=== PATIENT | male | born 1995 | race American Indian/Alaskan Native ===

== ENCOUNTER 2019-05-08 09:47 | Observation (INO) | payer BC ==
[~2019-05-08] VITALS: Wt 104.5 kg
[~2019-05-08 09:47] MED LIST changes: -Norco 7.5-3251 EACH PO
--- NOTE | 2019-05-08 13:16 | NUR ---
PT TO DAY SURGERY AT THIS TIME
--- NOTE | 2019-05-08 15:52 | NUR ---
POST OP S/P LAP APPY. X3 LAP SITES TO ABD ARE CDI WITH SCANT OOZING TO UMBILICAL SITE. MEDICATED WITH 2MG MORPHINE FOR PAIN AND PT WENT DOWN FROM A 04/13 TO A 5. DENIES N/V. OFFERED CLEAR LIQ. IVF INFUSING PER ORDERS. PT ALERT AND ORIENTED. POST OP VSS AND IN PROGRESS. ENC TO COUGH AND DEEP BREATHE. WILL OFFER ORAL PAIN MEDICATION WITH PO INTAKE AND ATTEMPT TO GET OOB BY END OF SHIFT. FAMILY AT BEDSIDE FOR SUPPORT. CALL LIGHT WITHIN REACH.
--- NOTE | 2019-05-08 22:14 | NUR ---
PATIENT RESTING WELL, S/O IN RECLINER PLANNING TO STAY THE NIGHT. C/O MILD CONSTANT ACHE IN HIS LOWER ABDOMEN. DENIES NEED FOR MEDICATIONS. ABLE TO GET OUT OF BED WITH ASSISTANCE DUE TO SCUD'S. REINFORCED USAGE OF CALL LIGHT FOR ASSISTANCE TO THE BR FOR SAFETY.
--- NOTE | 2019-05-09 05:13 | NUR ---
SHIFT SUMMARY. Patient and S/O slept throughtout the night. He woke with a few of the roundings. He has stated that he was having mild discomfort, but not enough to ask for medications. No further drainage from any of the three abdominal surgical sites.
[2019-05-09] MEDS ORDERED: Norco 7.5-3251 EACH PO (08:30)
--- NOTE | 2019-05-09 09:00 | NUR ---
DISCHARGE PT TOLERATING DIET, AMBULATING, PASSING GAS, AND PAIN MANAGED. AMBULATES OUT ON OWN WITH SIGNIFICANT OTHER BY SIDE.
--- NOTE | 2019-05-09 09:35 | NUR ---
05/09/19 0934 Carmen Velásquez VERIFICATIONS: EDIT CHART.
== END 2019-05-09 09:05 | disposition home or self-care (01) ==
LOC: CT 09:47 → SURS 09:48 → CT 11:49 → SURS 11:49
PROVIDERS: ADMIT Surgery
PROC: 0DTJ4ZZ Resection of Appendix, Percutaneous Endoscopic Approach (ICD-10-PCS; principal; 2019-05-08 12:30)
DX: K35.80 Unspecified acute appendicitis (principal)
CPT/HCPCS: 74177; 88305; G0378; J0330; J0694; J1100; J2250; J2270; J2405; J2704; J2710; J3010; J7120; Q9967

== ENCOUNTER → 2019-05-08 | Outpatient (CLI) | payer BC ==
[~2019-05-08] MED LIST: AMOX500 PO; AMOX50SU PO; ARIP10 PO; CITA20 PO; CODACE30 PO; GUAN1; HYDACE5 PO; HYDVAL.2TA TOP; IBUP100S; LACT10SY PO; Norco 7.5-3251 EACH PO; PRED10 PO; PROCODE120 PO; PROM25 PO; RXCODACET PO; TENEX; Ultram50 MG PO; Veetids 500500 MG PO; Zofran4 MG PO
[2019-05-08 09:53] LABS: BASOPHILS ABSOLUTE AUTO 0.06 K/mm3 (0.00-0.23); BASOPHILS PERCENT AUTO 0 % (0-2); EOSINOPHILS ABSOLUTE AUTO 0.01 K/mm3 (0.00-0.68); EOSINOPHILS PERCENT AUTO 0 % (0-6); Hematocrit 46.7 % (37.0-53.0); Hemoglobin 15.6 g/dL (13.5-17.5); IMMATURE GRAN ABSOLUTE AUTO 0.16 K/mm3 (0.00-0.10); IMMATURE GRAN PERCENT AUTO 1 % (0-1); LYMPHOCYTES ABSOLUTE AUTO 1.45 K/mm3 (0.84-5.20); LYMPHOCYTES PERCENT AUTO 6 % (21-46); MONOCYTES PERCENT AUTO 4 % (4-13); Mean Corpuscular HGB 28.8 pg (26.0-34.0); Mean Corpuscular HGB Conc 33.4 g/dL (31.5-36.5); Mean Corpuscular Volume 86 fL (80-100); Mean Platelet Volume 10.3 fL (9.1-12.4); NEUTROPHILS ABSOLUTE AUTO 20.83 K/mm3 (1.96-9.15); NEUTROPHILS PERCENT AUTO 89 % (41-73); Platelet Count 343 K/mm3 (150-400); RDW Standard Deviation 40.4 fL (35.1-46.3); Red Blood Cell Count 5.42 M/mm3 (4.30-5.90); White Blood Cell Count 23.51 K/mm3 (4.00-11.30)
[2019-05-08 10:01] LABS: Alanine Aminotransfer (ALT/SGP 28 U/L (12-78); Albumin, Blood 4.4 g/dL (3.4-5.0); Albumin/Globulin Ratio 1.2 (0.8-1.8); Alk Phos 69 U/L (50-136); Anion Gap 6 mmol/L (6-16); Aspartate Aminotrans (AST/SGOT 16 U/L (12-37); Bilirubin, Total 0.6 mg/dL (0.1-1.0); Blood Urea Nitrogen 11 mg/dL (8-24); Bun/Creatinine Ratio 13.3 (12.0-20.0); CO2, Blood 26 mmol/L (21-32); Calcium, Blood 9.8 mg/dL (8.5-10.1); Chloride, Blood 106 mmol/L (98-108); Creatinine, Blood 0.83 mg/dL (0.60-1.20); Globulin, Blood 3.8 g/dL (2.2-4.0); Glomerular Filtration Rate >60 (60-); Glucose, Blood 122 mg/dL (70-99); Potassium, Blood 3.6 mmol/L (3.5-5.5); Sodium, Blood 138 mmol/L (136-145); Total Protein, Blood 8.2 g/dL (6.4-8.2)
== END | disposition home or self-care (01) ==
LOC: LAB SHORT 09:00 → LAB 09:00
PROVIDERS: Physician Assistant
DX: R10.84 Generalized abdominal pain (principal)
CPT/HCPCS: 80053; 83690; 85025

== ENCOUNTER → 2019-08-04 | Outpatient (CLI) | payer BC ==
[~2019-08-04] MED LIST changes: +Norco 7.5-3251 EACH PO
[2019-08-05 16:43] LABS: U Amphetamine Screen Not Detected; U Barbituate Screen Not Detected; U Benzodiazapine Screen Not Detected; U Buprenorphine Screen Not Detected; U Cannabinoids Screen Not Detected; U Cocaine Screen Not Detected; U Methadone Screen Not Detected; U Methamphetamine Screen Not Detected; U Opiates Screen Not Detected; U Oxycodone Screen Not Detected; U Phencyclidine Screen Not Detected; U Propoxyphene Screen Not Detected
== END | disposition home or self-care (01) ==
LOC: LAB SHORT 09:30 → LAB 09:30
PROVIDERS: Physician Assistant
DX: Z51.81 Encounter for therapeutic drug level monitoring (principal); Z79.891 Long term (current) use of opiate analgesic

== ENCOUNTER → 2020-02-28 | Outpatient (CLI) | payer OTHER | LOC: LAB 18:07 → LAB SHORT 18:07 | DX: Z48.02 Encounter for removal of sutures (principal); L08.9 Local infection of the skin and subcutaneous tissue, unspecified | CPT/HCPCS: 87070; 87205 ==

== ENCOUNTER 2022-03-18 06:46 | Emergency (ER) | payer OTHER ==
[~2022-03-18] VITALS: Ht 185.4 cm; Wt 106.6 kg
[2022-03-18] MEDS ORDERED: Clomiphene Citr50 MG PO (07:20)
== END 2022-03-18 08:15 | disposition home or self-care (01) ==
LOC: ER 06:46
DX: U07.1 COVID-19 (principal)
CPT/HCPCS: 99283

== ENCOUNTER 2022-07-07 08:19 | Inpatient (IN) | payer BC, OTHER ==
[~2022-07-07] VITALS: Ht 182.9 cm; Wt 103.2 kg
[~2022-07-07 08:19] MED LIST changes: +Clomiphene Citr50 MG PO
[2022-07-07 10:08] LABS: Source, Urine Clean Catch
[2022-07-07 10:16] LABS: BASOPHILS ABSOLUTE AUTO 0.04 K/mm3 (0.00-0.23); BASOPHILS PERCENT AUTO 0 % (0-2); EOSINOPHILS PERCENT AUTO 2 % (0-6); Hematocrit 44.4 % (37.0-53.0); Hemoglobin 15.3 g/dL (13.5-17.5); IMMATURE GRAN ABSOLUTE AUTO 0.03 K/mm3 (0.00-0.10); IMMATURE GRAN PERCENT AUTO 0 % (0-1); LYMPHOCYTES ABSOLUTE AUTO 3.69 K/mm3 (0.84-5.20); LYMPHOCYTES PERCENT AUTO 28 % (21-46); MONOCYTES ABSOLUTE AUTO 0.83 K/mm3 (0.16-1.47); MONOCYTES PERCENT AUTO 6 % (4-13); Mean Corpuscular HGB Conc 34.5 g/dL (31.5-36.5); Mean Corpuscular Volume 84 fL (80-100); Mean Platelet Volume 9.8 fL (9.1-12.4); NEUTROPHILS ABSOLUTE AUTO 8.39 K/mm3 (1.96-9.15); NEUTROPHILS PERCENT AUTO 63 % (41-73); Platelet Count 322 K/mm3 (150-400); RDW Coefficient Variation 12.6 % (11.7-14.2); RDW Standard Deviation 38.4 fL (35.1-46.3); Red Blood Cell Count 5.27 M/mm3 (4.30-5.90); White Blood Cell Count 13.28 K/mm3 (4.00-11.30)
[2022-07-07 10:17] LABS: Appearance, Urine Clear (Clear); Bilirubin, Urine Neg (Neg); Blood, Urine 5+ (Neg); Color, Urine Amber (P-Yellow); Glucose Qualitative, Urine Neg (Neg); Ketones, Urine 2+ (Neg); Leukocyte Esterase, Urine Neg (Neg); Nitrite, Urine Neg (Neg); Protein, Urine 3+ (Neg); Specific Gravity, Urine 1.015 (1.003-1.022); Urobilinogen, Urine NORM (Normal)
[2022-07-07 10:24] LABS: Bacteria Few /hpf; Granular Casts 0-2 /lpf (0); Red Blood Cells, Urine 0-2 /hpf (0-2); Squamous Epithelial Cells Rare /hpf (Few); White Blood Cells, Urine 0-2 /hpf (0-5)
[2022-07-07 10:59] LABS: Alanine Aminotransfer (ALT/SGP 146 U/L (12-78); Albumin, Blood 3.9 g/dL (3.4-5.0); Albumin/Globulin Ratio 1.1 (0.8-1.8); Alk Phos 56 U/L (50-136); Anion Gap 9 mmol/L (6-16); Aspartate Aminotrans (AST/SGOT 559 U/L (12-37); Bilirubin, Total 0.6 mg/dL (0.1-1.0); Blood Urea Nitrogen 17 mg/dL (8-24); Bun/Creatinine Ratio 18.8 (12.0-20.0); CO2, Blood 24 mmol/L (21-32); Calcium, Blood 8.9 mg/dL (8.5-10.1); Chloride, Blood 107 mmol/L (98-108); Globulin, Blood 3.5 g/dL (2.2-4.0); Glomerular Filtration Rate 121 (60-); Glucose, Blood 90 mg/dL (70-99); Phosphorus, Blood 4.5 mg/dL (2.5-4.9); Potassium, Blood 3.3 mmol/L (3.5-5.5); Sodium, Blood 140 mmol/L (136-145); Total Protein, Blood 7.4 g/dL (6.4-8.2)
[2022-07-07 11:45] LABS: CPK Creatine Kinase >20000 U/L (39-308)
[2022-07-07 11:46] LABS: Creatine Kinase MB Index Unable to Calculate (0.0-4.0)
[2022-07-07 12:44] LABS: U Amphetamine Screen Not Detected; U Barbituate Screen Not Detected; U Benzodiazapine Screen Not Detected; U Buprenorphine Screen Not Detected; U Cannabinoids Screen Not Detected; U Cocaine Screen Not Detected; U Methadone Screen Not Detected; U Methamphetamine Screen Not Detected; U Opiates Screen Not Detected; U Oxycodone Screen Not Detected; U Phencyclidine Screen Not Detected; U Propoxyphene Screen Not Detected
--- NOTE | 2022-07-07 17:31 | NUR ---
RECIEVED REPORT FROM PHARMACY COORDINATOR YENI CARVAJAL REGARDING PATIENT ADMITTED TO MEDICAL UNIT. PATIENT ARRIVED TO ROOM 354 FROM ED AROUND 1630 VIA WHEELCHAIR. PATIENT TRANSFER FROM WHEELCHAIR TO BED INDEPENDENTLY. PATIENT DX WITH RHABDOMYOLYSIS. PATIENT IS A&OX4. PER REPORT PATIENT RECIEVED 2L OF NS IN ED. LUNGS CLEAR T/O. DENIES SOB, CP. DENIES N/V. REPORTS OF MUSCLE AND BLE PAIN 03/14. RECIEVED IV TRAMADOL PER EMAR. PATIENT ORIENT TO ROOM AND CALL SYSTEM. INFUSING NS AT 200 MLS/HR. PLEASANT AND COOPERATIVE WITH CARE. USE CALL LIGHT APPROPRIATLEY. BED IN LOWEST POSITION, LOCKED AND CALL LIGHT WITHIN REACH.
--- NOTE | 2022-07-08 04:17 | NUR ---
SUMMARY: PT A/OX4, IS INDEPENDENT IN ROOM AND CALLS APPROPRIATELY TO SPECIFY NEEDS. NS CONTINUES INFUSING AT 200 ML/HR FOR PROTECTION OF KIDNEYS R/T RHABDOMYOLYSIS. TORADOL WAS RECIEVED PRN FOR C/O PAINFUL AND SWOLLEN APPEARING THIGHS/BLE'S. NO ACUTE CHANGES, VSS/AFEBRILE. WCTM AND REPORT TO DAY RN.
[2022-07-08 05:47] LABS: Hematocrit 41.6 % (37.0-53.0); Hemoglobin 13.9 g/dL (13.5-17.5); Mean Corpuscular HGB 28.6 pg (26.0-34.0); Mean Corpuscular HGB Conc 33.4 g/dL (31.5-36.5); Mean Corpuscular Volume 86 fL (80-100); Mean Platelet Volume 10.1 fL (9.1-12.4); Platelet Count 280 K/mm3 (150-400); RDW Coefficient Variation 12.9 % (11.7-14.2); RDW Standard Deviation 40.1 fL (35.1-46.3); Red Blood Cell Count 4.86 M/mm3 (4.30-5.90); White Blood Cell Count 9.91 K/mm3 (4.00-11.30)
[2022-07-08 06:02] LABS: Alanine Aminotransfer (ALT/SGP 163 U/L (12-78); Albumin, Blood 3.1 g/dL (3.4-5.0); Alk Phos 44 U/L (50-136); Anion Gap 5 mmol/L (6-16); Aspartate Aminotrans (AST/SGOT 616 U/L (12-37); Bilirubin, Total 0.5 mg/dL (0.1-1.0); Blood Urea Nitrogen 9 mg/dL (8-24); Bun/Creatinine Ratio 11.3 (12.0-20.0); CO2, Blood 24 mmol/L (21-32); Calcium, Blood 8.2 mg/dL (8.5-10.1); Chloride, Blood 113 mmol/L (98-108); Glomerular Filtration Rate 125 (60-); Glucose, Blood 88 mg/dL (70-99); Phosphorus, Blood 3.1 mg/dL (2.5-4.9); Potassium, Blood 3.8 mmol/L (3.5-5.5); Sodium, Blood 142 mmol/L (136-145); Total Protein, Blood 6.1 g/dL (6.4-8.2)
[2022-07-08 07:27] LABS: CPK Creatine Kinase >20000 U/L (39-308)
[2022-07-08 10:43] LABS: International Normalized Ratio 1.09; Prothrombin Time Results 11.4 Sec (9.7-11.5)
[2022-07-08 10:46] LABS: C-REACTIVE PROTEIN, EXT RANGE 1.45 mg/dL (0.000-0.300)
[2022-07-08 10:55] LABS: Thyroid Stimulating Hormone 1.39 uIU/mL (0.360-4.800)
[2022-07-08 11:10] LABS: Source, Urine Clean Catch
[2022-07-08 11:26] LABS: Appearance, Urine Clear (Clear); Bilirubin, Urine Neg (Neg); Blood, Urine 2+ (Neg); Glucose Qualitative, Urine Neg (Neg); Ketones, Urine Neg (Neg); Leukocyte Esterase, Urine Neg (Neg); Nitrite, Urine Neg (Neg); Protein, Urine Neg (Neg); Urobilinogen, Urine NORM (Normal)
[2022-07-08 11:37] LABS: Color, Urine Pale Yellow (P-Yellow)
[2022-07-08 11:38] LABS: Bacteria Not Seen /hpf; Red Blood Cells, Urine 0-2 /hpf (0-2); Squamous Epithelial Cells Not Seen /hpf (Few); White Blood Cells, Urine 0-2 /hpf (0-5)
--- NOTE | 2022-07-08 19:43 | NUR ---
SHIFT SUMMARY PT REPORTED ANXIETY R/T UNCERTAINTY OF DIAGNOSIS. RECEIVED PRN ATIVAN, PT STATES HE IS UNSURE IF IT WAS EFFECTIVE. HEADACHE REPORTED, RECEIVED PRN TYLENOL WHICH DID PROVIDE RELIEF. PT USING URINAL AT BEDSIDE. FREQUENT VOIDS. REPORTS PAIN TO BLE, RN NOTED SWELLING TO QUADRICEPS. PT STATES HE FEELS THE TIGHTNESS EXTENDS LATERALLY BELOW THE KNEES. REPORTS HE IS NOT PAINFUL, EXCEPT WHEN MOVING. REPORTS IT IS MORE OF A TIGHT DISCOMFORT. ROOM AIR. ABLE TO USE CALL LIGHT. , DIMITRY, AT BEDSIDE FOR MOST OF SHIFT.
[2022-07-09 04:48] LABS: Hematocrit 41.6 % (37.0-53.0); Mean Corpuscular HGB 28.7 pg (26.0-34.0); Mean Corpuscular HGB Conc 33.7 g/dL (31.5-36.5); Mean Corpuscular Volume 85 fL (80-100); Mean Platelet Volume 9.5 fL (9.1-12.4); Platelet Count 268 K/mm3 (150-400); RDW Coefficient Variation 12.8 % (11.7-14.2); RDW Standard Deviation 39.9 fL (35.1-46.3); Red Blood Cell Count 4.87 M/mm3 (4.30-5.90); White Blood Cell Count 9.67 K/mm3 (4.00-11.30)
--- NOTE | 2022-07-09 04:49 | NUR ---
SUMMARY: PT A/OX4, IS INDEPENDENT IN ROOM AND CALLS APPROPRIATELY TO SPECIFY NEEDS. HE SLEPT MAJORITY OF NOCTE AND AWOKE FOR CARE/MEDS. SCHEDULED TORADOL RECIEVED FOR TOLERABLE RELIEF OF LEG PAIN AND HE CONT'S TO REPORT QUADRICEPS FEELING TIGHT AND INFLAMED. PT DOES REPORT BETTER PAIN CONTROL THIS SHIFT AND HASN'T REQUIRED ANY ADDITIONAL PRN PAIN MEDS. NS CONT'S TO INFUSING AT 200 MLS/HR W/FREQUENT URINAL USE OBESERVED. HE ADMITS TO UNDERLYING ANXIETY R/T UNCERTAINTY OF DIAGNOSIS AND EXPRESSES DESIRE FOR GOOD NEWS BUT BECOMES DISCOURAGED BY WORSENING LABWORK. SUPPORT AND REASSURANCE PROVIDED AND PT CALMED EASILY. NO ACUTE CHANGES, VSS/AFEBRILE. WCTM AND REPORT TO DAY RN.
[2022-07-09 05:07] LABS: Albumin, Blood 3.1 g/dL (3.4-5.0); Bilirubin, Total 0.4 mg/dL (0.1-1.0); Bun/Creatinine Ratio 13.4 (12.0-20.0); Calcium, Blood 8.5 mg/dL (8.5-10.1); Creatinine, Blood 0.75 mg/dL (0.60-1.20); Globulin, Blood 3.2 g/dL (2.2-4.0); Magnesium, Blood 1.8 mg/dL (1.6-2.4); Potassium, Blood 3.8 mmol/L (3.5-5.5); Total Protein, Blood 6.3 g/dL (6.4-8.2)
[2022-07-09 09:27] LABS: CPK Creatine Kinase >20000 U/L (39-308)
[2022-07-09 09:43] LABS: Creatine Kinase MB 17.1 ng/mL (0.0-3.6); Creatine Kinase MB Index Unable to Calculate (0.0-4.0)
--- NOTE | 2022-07-09 18:30 | NUR ---
SHIFT SUMMARY PT RESTING IN BED. MEDICATED FOR PAIN ONLY ONCE THIS SHIFT PRIOR TO A SHOWER. IV NS TURNED DOWN TO 125 ML/HR. SODIUM BICARB INFUSING PER EMAR AT 75 ML/HR. PT IN ROOM T/O DAY. PT VOIDING WELL. VS REVIEWED. NO OTHER ACUTE CHANGES IN ASSESSMENT AT THIS TIME.
[2022-07-10 04:54] LABS: BASOPHILS ABSOLUTE AUTO 0.04 K/mm3 (0.00-0.23); BASOPHILS PERCENT AUTO 0 % (0-2); EOSINOPHILS ABSOLUTE AUTO 0.33 K/mm3 (0.00-0.68); EOSINOPHILS PERCENT AUTO 3 % (0-6); Hematocrit 40.7 % (37.0-53.0); Hemoglobin 13.8 g/dL (13.5-17.5); IMMATURE GRAN ABSOLUTE AUTO 0.02 K/mm3 (0.00-0.10); IMMATURE GRAN PERCENT AUTO 0 % (0-1); LYMPHOCYTES ABSOLUTE AUTO 3.44 K/mm3 (0.84-5.20); LYMPHOCYTES PERCENT AUTO 35 % (21-46); MONOCYTES ABSOLUTE AUTO 0.59 K/mm3 (0.16-1.47); MONOCYTES PERCENT AUTO 6 % (4-13); Mean Corpuscular HGB 28.8 pg (26.0-34.0); Mean Corpuscular HGB Conc 33.9 g/dL (31.5-36.5); Mean Corpuscular Volume 85 fL (80-100); Mean Platelet Volume 9.9 fL (9.1-12.4); NEUTROPHILS ABSOLUTE AUTO 5.37 K/mm3 (1.96-9.15); NEUTROPHILS PERCENT AUTO 55 % (41-73); Platelet Count 274 K/mm3 (150-400); RDW Coefficient Variation 12.7 % (11.7-14.2); RDW Standard Deviation 39.4 fL (35.1-46.3); White Blood Cell Count 9.79 K/mm3 (4.00-11.30)
[2022-07-10 05:33] LABS: Magnesium, Blood 1.8 mg/dL (1.6-2.4)
[2022-07-10 06:18] LABS: Alanine Aminotransfer (ALT/SGP 195 U/L (12-78); Albumin, Blood 3.1 g/dL (3.4-5.0); Alk Phos 43 U/L (50-136); Anion Gap 5 mmol/L (6-16); Aspartate Aminotrans (AST/SGOT 584 U/L (12-37); Bilirubin, Total 0.5 mg/dL (0.1-1.0); Blood Urea Nitrogen 9 mg/dL (8-24); Bun/Creatinine Ratio 11.3 (12.0-20.0); CO2, Blood 28 mmol/L (21-32); CPK Creatine Kinase >20000 U/L (39-308); Calcium, Blood 8.7 mg/dL (8.5-10.1); Chloride, Blood 111 mmol/L (98-108); Glomerular Filtration Rate 125 (60-); Glucose, Blood 95 mg/dL (70-99); Potassium, Blood 3.5 mmol/L (3.5-5.5); Sodium, Blood 144 mmol/L (136-145); Total Protein, Blood 6.1 g/dL (6.4-8.2)
[2022-07-10 06:19] LABS: Creatine Kinase MB Index Unable to Calculate (0.0-4.0)
--- NOTE | 2022-07-10 06:51 | NUR ---
NOC SHIFT SUMMARY PT ANXIOUS OVERNIGHT, WHICH I WAS TOLD WAS THE CASE SINCE HIS ADMISSION. THIS RN INTERACTED WITH PATIENT SEVERAL TIMES A MEANS TO DISTRACT PATIENT FROM HIS WORRIES. IVF CONTINUE INFUSING AT A HIGH RATE. URINE IS VERY LIGHT, CLEAR YELLOW. PT'S WILL BE COMING BACK TODAY, WHICH OFFERS THE PATIENT MUCH NEEDED SOOTHING. NO ISSUES OVERNIGHT.
[2022-07-10 11:23] LABS: Cholesterol 129 mg/dL (50-200); Free Thyroxine 1.03 ng/dL (0.70-1.60); Triglycerides 108 mg/dL (30-140); Triiodothyronine, Free 2.71 pg/mL (2.18-3.98)
[2022-07-10 11:51] LABS: Influenza A, PCR NEGATIVE (NEGATIVE); Influenza B, PCR NEGATIVE (NEGATIVE); Resp Syncytial Virus, PCR NEGATIVE (NEGATIVE); SARS-Cov-2 (COVID-19) PCR, MMC NEGATIVE (NEGATIVE)
[2022-07-10 12:07] LABS: A/G RATIO 1.3 (0.7-1.7); ALBUMIN 3.3 g/dL (2.9-4.4); ALPHA-1-GLOBULIN 0.2 g/dL (0.0-0.4); ALPHA-2-GLOBULIN 0.6 g/dL (0.4-1.0); BETA GLOBULIN 0.8 g/dL (0.7-1.3); GAMMA GLOBULIN 0.9 g/dL (0.4-1.8); GLOBULIN, TOTAL 2.5 g/dL (2.2-3.9); M-SPIKE Not Observed g/dL (Not Observed); PROTEIN, TOTAL, SERUM 5.8 g/dL (6.0-8.5)
--- NOTE | 2022-07-10 15:18 | NUR ---
SHIFT SUMMARY PT IS A&O, PLEASANT AND CO-OP. RESTING QUIETLY WITH AT BS THIS AM AND THRU OUT THE DAY. UP INDEPENDENTLY IN RM AND TO BTHRM. NS AND SODIUM BICARB INFUSING PER EMAR. PT VOIDING WELL. NEPHROLOGY CONSULT CALLED TO DR REBOLLEDO WHO LATER CAME AND SEEN PT. NO NEW ORDERS AT THIS TIME. PT SHOWING SOME IMPROVEMENT IN THE RIGHT DIRECTION. SOME ANXIETY NOTED THIS AM, BUT PT SEEMS MORE RELAXED THIS AFTERNOON. DR FERRER IN TO SEE PT EARLIER; DISCUSSED PLAN OF CARE. PT DENIED FURTHER NEEDS AT THIS TIME. CALL LT IN REACH.
--- NOTE | 2022-07-10 19:15 | NUR ---
AFTER PERFORMING SHIFT ASSESSMENT, THIS RN NOTICED OUTPUT AMOUNTS WRITTEN ON BOARD (PT'S HAS BEEN DOING THIS SINCE ADMISSION). WHEN INQUIRING TO [place] AMOUNTS HAD BEEN DOCUMENTED BY STAFF, BOTH THE PATIENT AND HIS STATED THAT THEY "ASSUMED SO, SINCE K Y [facility] [employer] HAD AT ONE POINT, STOOD IN FRONT OF THE BOARD AND APPEARED TO WRITE THEM DOWN". UPON REVIEWING PATIENT'S CHART, IT WAS DISCOVERED THAT THE LAST DOCUMENTED INTAKE OR OUTPUT WAS FROM THIS RN, DURING THE PREVIOUS NIGHT'S SHIFT. THIS RN ALSO CONFERRED WITH NENO BRADY CNA, REGARDING THIS FINDING. I WAS INFORMED THAT SHE WAS TOLD DURING SHIFT REPORT THAT "THE FAMILY KEEPS TRACK OF ALL THE OUTPUT". I INFORMED SOILA, OUR CHARGE NURSE FOR [facility], ABOUT THIS OVERSHIGHT. THE UNDOCUMENTED TOTAL OUTPUT, WHICH AMOUNTED TO 4,050, WAS CAPTURED IN [employer] AT 1930 BY THIS RN.
[2022-07-11 04:26] LABS: Hematocrit 41.1 % (37.0-53.0); Hemoglobin 13.8 g/dL (13.5-17.5); Mean Corpuscular HGB 28.6 pg (26.0-34.0); Mean Corpuscular HGB Conc 33.6 g/dL (31.5-36.5); Mean Corpuscular Volume 85 fL (80-100); Mean Platelet Volume 9.7 fL (9.1-12.4); Platelet Count 293 K/mm3 (150-400); RDW Coefficient Variation 12.8 % (11.7-14.2); RDW Standard Deviation 39.7 fL (35.1-46.3); Red Blood Cell Count 4.82 M/mm3 (4.30-5.90); White Blood Cell Count 9.72 K/mm3 (4.00-11.30)
[2022-07-11 06:00] LABS: Albumin, Blood 3.3 g/dL (3.4-5.0); Bilirubin, Total 0.3 mg/dL (0.1-1.0); Bun/Creatinine Ratio 12.3 (12.0-20.0); Creatinine, Blood 0.73 mg/dL (0.60-1.20); Globulin, Blood 3.4 g/dL (2.2-4.0); Potassium, Blood 3.7 mmol/L (3.5-5.5); Total Protein, Blood 6.7 g/dL (6.4-8.2)
[2022-07-11 06:20] LABS: Creatine Kinase MB 3.5 ng/mL (0.0-3.6)
--- NOTE | 2022-07-11 06:26 | NUR ---
NOC SHIFT SUMMARY PT WAS IN [employer] SPIRITS THROUGHOUT SHIFT AFTER HEARING FROM NEPHROLOGY THAT "THINGS ARE MOVING IN THE RIGHT DIRECTION". IVF CONTINUE INFUSING WITH EXCELLENT OUTPUT; URINE REMAINS CLEAR, LIGHT YELLOW. NO ISSUES NOTED. PT HOPING TO GO HOME SOON.
[2022-07-11 08:09] LABS: HIV AB/P24 AG SCREEN Non Reactive (Non Reactive)
[2022-07-11 09:09] LABS: EBV AB VCA, IGM <36.0 U/mL (0.0-35.9); EBV NUCLEAR ANTIGEN AB, IGG <18.0 U/mL (0.0-17.9)
--- NOTE | 2022-07-11 13:44 | NUR ---
DISCHARGE NOTE PT WAS DISCHARGED AT 1400. HE WAS ALERT AND ORIENTED PRIOR WITH HIS AT THE BS. HE WAS TRANSPORTED TO THE EXIT VIA WHEELCHAIR SAFETLY. HIS IV WAS REMOVED. HIS DISCHARGE EDUCATION WAS DISCUSSED AND PRESENTED. INFORMED TO FOLLOW UP WITH PCP UPON DISCHARGE.
--- NOTE | 2022-07-11 14:09 | NUR ---
PT WAS AWAKE AT START OF SHIFT WATCHING TV WITH HIS AT BS. UP INDEPENDENTLY IN RM AND TO BTHRM. IMPROVED LAB RESULTS REPORTED TO PT PER CHART. URINE LABS ORDERED THIS AM; PT INFORMED AND CALLED WHEN SAMPLE WAS READY. PT REPORTED VISITS FROM NEPHROLOGY AND DR FERRER. PT CLEARED FOR D/C BY BOTH AFTER ASSESSMENT AND PLAN OF CARE DISCUSSION. IV SITE D/C'D, D/C INSTRUCTIONS REVIEWED WITH PT AND , VERBALIZING UNDERSTANDING. PT NOT TO DO STRENUOUS EXERCISE UNTIL CLEARED BY PCP. PT ASSISTED OUT TO CAR VIA W/C WITH .
[2022-07-11 18:10] LABS: ANTI-CENTROMERE B ANTIBODIES <0.2 AI (0.0-0.9); ANTI-DNA (DS) AB QN 1 IU/mL (0-9); ANTI-JO-1 <0.2 AI (0.0-0.9); ANTICHROMATIN ANTIBODIES <0.2 AI (0.0-0.9); ANTISCLERODERMA-70 ANTIBODIES <0.2 AI (0.0-0.9); RNP ANTIBODIES 0.2 AI (0.0-0.9); SJOGREN'S ANTI-SS-A <0.2 AI (0.0-0.9); SJOGREN'S ANTI-SS-B <0.2 AI (0.0-0.9); SMITH ANTIBODIES <0.2 AI (0.0-0.9)
== END 2022-07-11 13:11 | disposition home or self-care (01) | DRG 558 ==
LOC: ER 08:19 → MEDS 14:30
PROVIDERS: Nurse Practitioner Acute Care; Physician Assistant; ADMIT Internal Medicine
DX: M62.82 Rhabdomyolysis (principal); E87.6 Hypokalemia; R74.8 Abnormal levels of other serum enzymes; D72.829 Elevated white blood cell count, unspecified; Z20.822 Contact with and (suspected) exposure to COVID-19; F32.A Depression, unspecified; K76.0 Fatty (change of) liver, not elsewhere classified; Z98.890 Other specified postprocedural states; Z90.49 Acquired absence of other specified parts of digestive tract; Z79.899 Other long term (current) drug therapy; Z72.0 Tobacco use
CPT/HCPCS: 0241U; 36415; 72131; 76705; 80053; 81001; 81003; 82465; 82550; 82553; 82570; 83690; 83735; 83874; 84100; 84156; 84165; 84439; 84443; 84478; 84481; 84550; 85025; 85027; 85379; 85610; 85651; 86038; 86140; 86225; 86235; 86664; 86665; 86788; 86789; 87389; 93005; 93010; 96360; 96361; 99285-25; A9270; J1650; J1885; J7030; J7070

== ENCOUNTER 2023-07-12 10:40 | Emergency (ER) | payer OTHER ==
[~2023-07-12] VITALS: Ht 185.4 cm; Wt 106.6 kg
[2023-07-12 10:45] VITALS: BP 143/87
[2023-07-12] MEDS ORDERED: IBUP800 PO (12:15)
[2023-07-12] MEDS ORDERED: Robaxin750 MG PO (12:15)
== END 2023-07-12 12:24 | disposition home or self-care (01) ==
LOC: ER 10:40
DX: S39.011A Strain of muscle, fascia and tendon of abdomen, initial encounter (principal); X50.0XXA Overexertion from strenuous movement or load, initial encounter
CPT/HCPCS: 73502; 96372; 99283-25; A9270; J1885

== ENCOUNTER 2023-11-28 08:13 | Emergency (ER) | payer OTHER ==
[~2023-11-28] VITALS: Ht 185.4 cm; Wt 106.6 kg
[~2023-11-28 08:13] MED LIST changes: +IBUP800 PO; +Robaxin750 MG PO
[2023-11-28] MEDS ORDERED: NS 1,000 ML IV SCH ×2 (09:10→12:50)
[2023-11-28 09:33] LABS: BASOPHILS ABSOLUTE AUTO 0.03 K/mm3 (0.00-0.23); BASOPHILS PERCENT AUTO 0 % (0-2); EOSINOPHILS PERCENT AUTO 3 % (0-6); Hematocrit 45.2 % (37.0-53.0); Hemoglobin 15.6 g/dL (13.5-17.5); IMMATURE GRAN ABSOLUTE AUTO 0.02 K/mm3 (0.00-0.10); IMMATURE GRAN PERCENT AUTO 0 % (0-1); LYMPHOCYTES ABSOLUTE AUTO 3.62 K/mm3 (0.84-5.20); LYMPHOCYTES PERCENT AUTO 35 % (21-46); MONOCYTES ABSOLUTE AUTO 0.66 K/mm3 (0.16-1.47); MONOCYTES PERCENT AUTO 6 % (4-13); Mean Corpuscular HGB 28.9 pg (26.0-34.0); Mean Corpuscular HGB Conc 34.5 g/dL (31.5-36.5); Mean Corpuscular Volume 84 fL (80-100); Mean Platelet Volume 9.7 fL (9.1-12.4); NEUTROPHILS ABSOLUTE AUTO 5.79 K/mm3 (1.96-9.15); NEUTROPHILS PERCENT AUTO 56 % (41-73); Platelet Count 288 K/mm3 (150-400); RDW Coefficient Variation 12.9 % (11.7-14.2); RDW Standard Deviation 38.8 fL (35.1-46.3); Red Blood Cell Count 5.39 M/mm3 (4.30-5.90); White Blood Cell Count 10.42 K/mm3 (4.00-11.30)
[2023-11-28 10:08] LABS: Albumin, Blood 4.3 g/dL (3.4-5.0); Albumin/Globulin Ratio 1.1 (0.8-1.8); Bilirubin, Total 0.3 mg/dL (0.1-1.0); Bun/Creatinine Ratio 19.8 (12.0-20.0); Calcium, Blood 9.9 mg/dL (8.5-10.1); Creatinine, Blood 0.96 mg/dL (0.60-1.20); Globulin, Blood 3.8 g/dL (2.2-4.0); Potassium, Blood 3.8 mmol/L (3.5-5.5); Total Protein, Blood 8.1 g/dL (6.4-8.2)
[2023-11-28] MEDS ORDERED: Sodium Bicarb 8.4% Inj 100 MEQ in Sodium Chloride 0.45% 1,000 ML IV SCH (12:00)
[2023-11-28] MEDS ORDERED: NS 1,000 ML IV STA (13:07)
[2023-11-28 13:17] LABS: Source, Urine Voided
[2023-11-28 13:38] LABS: Appearance, Urine Clear (Clear); Bilirubin, Urine Neg (Neg); Blood, Urine Neg (Neg); Glucose Qualitative, Urine Neg (Neg); Ketones, Urine Neg (Neg); Leukocyte Esterase, Urine Neg (Neg); Nitrite, Urine Neg (Neg); Protein, Urine Neg (Neg); Urobilinogen, Urine NORM (Normal)
[2023-11-28 13:39] LABS: Color, Urine Pale Yellow (P-Yellow)
[2023-11-28 16:15] VITALS: BP 119/64
== END 2023-11-28 17:04 | disposition home or self-care (01) ==
LOC: ER 08:13
PROVIDERS: Emergency Medicine
DX: M62.82 Rhabdomyolysis (principal)
CPT/HCPCS: 80053; 81003; 82550; 85025; 96361; 96374; 99283-25; J7030

== ENCOUNTER → 2024-11-07 | Outpatient (CLI) | payer OTHER ==
[2024-11-07 17:53] LABS: BASOPHILS ABSOLUTE AUTO 0.05 K/mm3 (0.00-0.23); BASOPHILS PERCENT AUTO 1 % (0-2); EOSINOPHILS ABSOLUTE AUTO 0.31 K/mm3 (0.00-0.68); EOSINOPHILS PERCENT AUTO 3 % (0-6); Hematocrit 44.5 % (37.0-53.0); Hemoglobin 15.5 g/dL (13.5-17.5); IMMATURE GRAN ABSOLUTE AUTO 0.03 K/mm3 (0.00-0.10); IMMATURE GRAN PERCENT AUTO 0 % (0-1); LYMPHOCYTES PERCENT AUTO 45 % (21-46); MONOCYTES ABSOLUTE AUTO 0.72 K/mm3 (0.16-1.47); MONOCYTES PERCENT AUTO 7 % (4-13); Mean Corpuscular HGB 29.1 pg (26.0-34.0); Mean Corpuscular HGB Conc 34.8 g/dL (31.5-36.5); Mean Corpuscular Volume 84 fL (80-100); NEUTROPHILS PERCENT AUTO 45 % (41-73); Platelet Count 315 K/mm3 (150-400); RDW Coefficient Variation 13.4 % (11.7-14.2); RDW Standard Deviation 41.1 fL (35.1-46.3); Red Blood Cell Count 5.33 M/mm3 (4.30-5.90); White Blood Cell Count 11.01 K/mm3 (4.00-11.30)
[2024-11-07 18:18] LABS: Albumin, Blood 4.1 g/dL (3.4-5.0); Bilirubin, Total 0.3 mg/dL (0.1-1.0); Bun/Creatinine Ratio 19.4 (12.0-20.0); Calcium, Blood 9.3 mg/dL (8.5-10.1); Creatinine, Blood 1.03 mg/dL (0.60-1.20); Potassium, Blood 3.5 mmol/L (3.5-5.5); Thyroid Stimulating Hormone 1.89 uIU/mL (0.360-4.800); Total Protein, Blood 8.1 g/dL (6.4-8.2)
== END ==
LOC: LAB 16:47 → LAB SHORT 16:47
PROVIDERS: Physician Assistant
DX: R53.83 Other fatigue (principal)
CPT/HCPCS: 80053; 84443; 85025